=== PATIENT | male | born 1985 | race African-American/Black ===

== ENCOUNTER 2018-05-30 18:25 | Emergency (ER) | payer SELFPAY ==
[~2018-05-30] VITALS: Ht 182.9 cm; Wt 79.4 kg
--- OUTSIDE RECORDS SUMMARY | 2018-05-30 18:31 | XMS REPORT | Continuity of Care Document ---
Author Organization Unknown Address Unknown Allergies There is no data. Medications There is no data. Problems There is no data. Procedures There is no data. Results There is no data. Encounters ACCT No. Visit Date/Time Discharge Status Pt. Type Provider Facility Loc./Unit Complaint [id number] 05/30/2018 15:00:00 ACT Outpatient [facility]
--- NOTE | 2018-05-30 19:33 | ED EENT ---
History of Present Illness General Chief Complaint: Dental Problems/Pain Stated Complaint: RT SIDE TOOTH ACHE Nursing Triage Note: Patient reports right dental pain since yesterday. States he has been taking aspirin at home without relief. History of Present Illness Date Seen by Provider: May 30, 2018 Time Seen by Provider: 19:18 Initial Comments 32 yo M with right lower dental pain and swelling. Started in last day or two but more severe today. States he has a dentist appt on Saturday but pain is keeping him up at night and he has to work at [employer] at 3 am and wants something for pain and antibiotic to help him rest and to help with his tooth. He denies fever or chills. He has some pain to right mandible and jaw where the tooth is at. The tooth itself has a large hole in it and is decayed down into the pulp. He has had problems with the tooth before. He denies having drainage from the tooth. He has some mild swelling to the gums around the tooth. Allergies and Home Medications Allergies Coded Allergies: No Known Drug Allergies (Unverified , 05/30/18) Home Medications Amoxicillin/Potassium Clav 1 Each Tablet, 1 EACH PO BID Prescribed by: DUYEN DAVIS on 05/30/181939 Ibuprofen 800 Mg Tablet, 800 MG PO Q8H PRN for PAIN Prescribed by: DUYEN DAVIS on 05/30/181939 Tramadol HCl 50 Mg Tablet, 50 MG PO Q6H PRN for severe pain Prescribed by: DUYEN DAVIS on 05/30/181939 Patient Home Medication List Home Medication List Reviewed: Yes Review of Systems Review of Systems Constitutional: No chills, No fever Eyes: No Symptoms Reported Ears: Pain (right ear radiating up from his tooth); Denies Tinnitus, Denies Bloody Discharge, Denies Clear Discharge, Denies Purulent Discharge, Denies Serosanguinous Discharge, Denies Previous Injury Nose: no symptoms reported Mouth: see HPI Throat: no symptoms reported Respiratory: no symptoms reported Cardiovascular: no symptoms reported Gastrointestinal: no symptoms reported Musculoskeletal: no symptoms reported Skin: no symptoms reported Neurological: No Symptoms Reported Past Mgttytl-Dfelpd-Fenvps Hx Past Med/Social Hx: Reviewed Nursing Past Med/Soc Hx Patient Social History Alcohol Use: Occasionally Uses Recreational Drug Use: No Smoking Status: Current Everyday Smoker Type Used: Cigarettes 2nd Hand Smoke Exposure: No Recent Foreign Travel: No Contact w/Someone Who Travel: No Recent Infectious Disease Expo: No Recent Hopitalizations: No Physical Abuse: No Sexual Abuse: No Mistreated: No Fear: No Seasonal Allergies Seasonal Allergies: No Past Medical History Surgeries: No Respiratory: No Cardiac: No Neurological: No Genitourinary: No Gastrointestinal: No Musculoskeletal: No Endocrine: No Cancer: No Psychosocial: No Integumentary: No Blood Disorders: No Physical Exam Vital Signs Vital Signs - First Documented 05/30/18 18:46 Temp 99.2 Pulse 82 Resp 16 B/P (MAP) 173/86 (115) Pulse Ox 100 O2 Delivery Room Air Height, Weight, BMI Height: 6'" Weight: 175lbs. oz. 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, no motor/sensory deficits, alert, normal mood/affect, oriented x 3 Skin: normal color, warm/dry; No rash Progress/Results/Core Measures Results/Orders My Orders Orders - DUYEN DAVIS MD Ceftriaxone For Im Use (Rocephin For Im (05/31/18 09:00) Ketorolac Injection (Toradol Injection) (05/30/18 19:45) Lidocaine 1% Inj 20 Ml (Xylocaine 1% Inj (05/30/18 19:45) Ceftriaxone For Im Use (Rocephin For Im (05/30/18 19:39) Medications Given in ED Current Medications Medications Dose Ordered Sig/Art Route Start Time Stop Time Status Last Admin Dose Admin Ketorolac Tromethamine 60 mg ONCE ONCE IM 05/30/18 19:45 05/30/18 19:46 DC 05/30/18 19:55 60 MG Lidocaine HCl 2.1 ml ONCE ONCE INJ 05/30/18 19:45 05/30/18 19:46 DC 05/30/18 19:54 2.1 ML Vital Signs/I&O 05/30/18 05/30/18 18:46 20:04 Temp 99.2 99.2 Pulse 82 82 Resp 16 16 B/P (MAP) 173/86 (115) 173/86 (115) Pulse Ox 100 100 O2 Delivery Room Air Room Air Blood Pressure Mean: 115 Progress Progress Note : Progress Note will give Rocephin 1 gm IM to kick start treatment for infection and Toradol 60 mg IM for pain. Discharge on Augmentin 875 bid for infection and this will help the pain as it treats the inflammation and infection, ibuprofen for pain and inflammation, tramadol for severe pain. Counseled to follow up with dentist Saturday as scheduled or the pain will continue to come back and get worse. Departure Impression Primary Impression: Dental caries extending into dentine Additional Impressions: Pain due to dental caries Chronic dental pain Disposition: HOME, SELF-CARE Condition: Stable Departure-Patient Inst. Decision time for Depature: 19:36 Referrals: NO,LOCAL PHYSICIAN (PCP) Primary Care Physician Patient Instructions: Dental Pain (DC), Tooth Decay, Adult (DC) Add. Discharge Instructions: Take all the antibiotics until gone. Follow up with Dentist as soon as possible to get the tooth taken care of or you will continue to have recurrent pain and problems with the tooth and pain All discharge instructions reviewed with patient and/or family. Voiced understanding. Scripts Ibuprofen (Ibuprofen) 800 Mg Tablet 800 MG PO Q8H PRN for PAIN for 10 Days, #30 TAB 0 Refills Prov: DUYEN DAVIS MD 05/30/18 Tramadol HCl (Tramadol HCl) 50 Mg Tablet 50 MG PO Q6H PRN for severe pain for 5 Days, #20 TAB 0 Refills Prov: DUYEN DAVIS MD 05/30/18 Amoxicillin/Potassium Clav (Augmentin 875-125 Tablet) 1 Each Tablet 1 EACH PO BID for dental infection for 10 Days, #20 TAB 0 Refills Prov: DUYEN DAVIS MD 05/30/18 DUYEN DAVIS MD May 30, 2018 19:33
[2018-05-30] MEDS ORDERED: cefTRIAXone 1,000 MG/2.86 ml vial (IM ONLY) ONE (19:39)
[2018-05-30] MEDS ORDERED: TRAM50TA2 PO (19:40)
[2018-05-30] MEDS ORDERED: AMOX-358 PO (19:40)
[2018-05-30] MEDS ORDERED: IBUP-1780 PO (19:40)
[2018-05-30] MEDS ORDERED: KETOROLAC 60 MG/2 ML VIAL IM ONE (19:45)
[2018-05-30] MEDS ORDERED: LIDOCAINE 1% INJ 20 ML 20 ML VIAL INJ ONE (19:45)
[2018-05-30 20:04] VITALS: BP 173/86
[2018-05-31] MEDS ORDERED: cefTRIAXone 1,000 MG/2.86 ml vial (IM ONLY) IM SCH (09:00)
== END 2018-05-30 20:00 | disposition home or self-care (01) ==
LOC: ER FS 18:27
DX: K02.9 Dental caries, unspecified (principal); G89.29 Other chronic pain; F17.210 Nicotine dependence, cigarettes, uncomplicated
CPT/HCPCS: 99284

== ENCOUNTER 2019-05-24 13:45 | Emergency (ER) | payer OTHER ==
[~2019-05-24] VITALS: Ht 183 cm; Wt 82.0 kg
[~2019-05-24 13:45] MED LIST: AMOX-358 PO; IBUP-1780 PO; TRM50T PO
--- OUTSIDE RECORDS SUMMARY | 2019-05-24 13:50 | XMS REPORT ---
Author Author Austin MCLEOD Organization [facility] [place] RE Address [address] [place] [address] Care Team Providers Care Apartment Maintenance Name Role Phone BETITO MCLEOD Unavailable PROBLEMS Unknown Problems ALLERGIES No Information ENCOUNTERS Encounter Location Date Diagnosis [facility] IN [facility] [address] [facility] [place] [address] May, Mouth pain K13.79 [facility] IN [facility] [address] [facility] [place] [address] Apr, Drug screening, pre-employment Z02.1 IMMUNIZATIONS No Known Immunizations SOCIAL HISTORY Never Assessed REASON FOR VISIT Pre emp drug and alcohol Radha Sheffield (R) PLAN OF CARE Activity Details Pending Test URINE DRUG SCREEN (IN HOUSE) VITAL SIGNS MEDICATIONS No Known Medications RESULTS Name Result Date Reference Range ETOH BREATH (In House) 2018-05-05 PROCEDURES Procedure Date Ordered Result Body Site ASSAY OF BREATH ETHANOL May 05, 2018 DRUG TEST PRSMV DIR OPT OBS May 05, 2018 INSTRUCTIONS MEDICATIONS ADMINISTERED No Known Medications
--- OUTSIDE RECORDS SUMMARY | 2019-05-24 13:50 | XMS REPORT | Continuity of Care Document ---
Author Organization Unknown Address Unknown Phone Unavailable Allergies Active Description Code Type Severity Reaction Onset Reported/Identified Relationship to Patient Clinical Status Yes No Known Drug Allergies [id number] Drug Allergy Unknown N/A 05/30/2018 Medications There is no data. Problems Date Dx Coded Attending Type Code Diagnosis Diagnosed By 05/30/2018 DUYEN DAVIS MD Ot F17.2 10 NICOTINE DEPENDENCE, CIGARETTES, UNCOMPL 05/30/2018 DUYEN DAVIS MD Ot G89.2 9 OTHER CHRONIC PAIN 05/30/2018 DUYEN DAVIS MD Ot K02.9 DENTAL CARIES, UNSPECIFIED 05/30/2018 DUYEN DAVIS MD Ot K08.8 9 OTHER SPECIFIED DISORDERS OF TEETH AND S 06/02/2018 DUYEN DAVIS MD Ot F17.2 10 NICOTINE DEPENDENCE, CIGARETTES, UNCOMPL 06/02/2018 DUYEN DAVIS MD Ot G89.2 9 OTHER CHRONIC PAIN 06/02/2018 DUYEN DAVIS MD Ot K02.9 DENTAL CARIES, UNSPECIFIED 06/02/2018 DUYEN DAVIS MD Ot K08.8 9 OTHER SPECIFIED DISORDERS OF TEETH AND S Procedures There is no data. Results There is no data. Encounters ACCT No. Visit Date/Time Discharge Status Pt. Type Provider Facility Loc./Unit Complaint [id number] 05/30/2018 15:00:00 05/30/2018 23:59:5 9 CLS Outpatient KAYLEE MULLINS APRN [facility] [id number] 05/30/2018 18:27:00 019 20:00:00 DIS Emergency DUYEN DAVIS MD Via [facility] ER FS RT SIDE TOOTH ACHE
[2019-05-24] MEDS ORDERED: NS IV 1000 ML 1,000 ML IV STA (13:52)
--- NOTE | 2019-05-24 14:00 | ED General ---
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 Patient states he was dilated but drinking because he wanted to because of PROBLEMS IN HIS LIFE. PATIENT WAS BROUGHT IN BY THE POLICE FOR EVALUATION. PATIENT HAS NO RESPIRATORY OR SOFT VAGINAL SYMPTOMS. NO ERYTHEMA AND NO COMPLAINT OF SORE THROAT OR BURNING. NO DETERGENT TYPE SMELL ON THE BREATH. WE WILL CONTACT POISON CONTROL. I DO HAVE SOME CONCERNS WHETHER THE PATIENT IS ACTUALLY TAKING THIS INGESTION CLEANING PRODUCT OR NOT. Patient states he does have a history of the same in the past several years ago of an ingestion. Trying to harm himself. Patient states he was in psychological facility for about a week at that time. Patient states he is currently been in detention for the past 4-5 months due to aggravated robbery. He does not long while he is going to be in detention because he has not had a spinal cord that yet. However we will proceed with caution. We'll perform medical screening exam and evaluate treat as needed Timing/Duration: 1/2 Hour Severity: Mild Associated Systoms: Denies Symptoms; No Chest Pain, No Cough, No Diaphoresis, No Fever/Chills, No Headaches, No Loss of Appetite, No Malaise, No Nausea/Vomiting, No Rash, No Seizure, No Shortness of Air, No Syncope, No Weakness, No Other Allergies and Home Medications Allergies Coded Allergies: No Known Drug Allergies (Unverified , 05/30/18) Home Medications Amoxicillin/Potassium Clav 1 Each Tablet, 1 EACH PO BID Prescribed by: DUYEN DAVIS on 05/30/181939 Ibuprofen 800 Mg Tablet, 800 MG PO Q8H PRN for PAIN Prescribed by: DUYEN DAVIS on 05/30/181939 Tramadol HCl 50 Mg Tablet, 50 MG PO Q6H PRN for severe pain Prescribed by: DUYEN DAVIS on 05/30/181939 Patient Home Medication List Home Medication List Reviewed: Yes Review of Systems Review of Systems Constitutional: No no symptoms reported; see HPI; No chills, No diaphoresis, No dizziness, No fever, No malaise, No weakness, No weight gain, No weight loss, No other EENTM: No see HPI, No no symptoms reported, No ear discharge, No hearing loss, No ear pain, No blurred vision, No double vision, No eye pain, No tearing, No vision loss, No dental problems, No hoarseness, No mouth pain, No mouth swelling, No epistaxis, No nose congestion, No nose pain, No throat pain, No throat swelling, No other Respiratory: No no symptoms reported, No see HPI, No cough, No dyspnea on exertion, No hemoptysis, No orthopnea, No phlegm, No short of breath, No stridor, No wheezing, No other Cardiovascular: No no symptoms reported, No see HPI, No chest pain, No edema, No Hx of Intervention, No palpitations, No syncope, No vascular heart diseas, No other Gastrointestinal: No RUQ, No LUQ, No RLQ, No LLQ, No no symptoms reported, No see HPI, No abdominal pain, No constipation, No diarrhea, No dysphagia, No hematemesis, No heartburn, No jaundice, No loss of appetite, No melena, No nause a, No vomiting, No other Genitourinary: No no symptoms reported, No see HPI, No decreased output, No discharge, No dysuria, No frequency, No hematuria, No hesitancy, No incontinence, No nocturia, No pain, No other Musculoskeletal: No no symptoms reported, No see HPI, No back pain, No gout, No joint pain, No joint swelling, No muscle pain, No muscle stiffness, No muscle cramps, No muscle twitching, No muscle weakness, No neck pain, No other Skin: No no symptoms reported, No see HPI, No change in color, No change in hair/nails, No dryness, No hx of skin cancer, No lesions, No lumps, No pruritus, No rash, No other Past Rynkxmw-Aehfjo-Toomrv Hx Patient Social History Alcohol Use: Denies Use Recreational Drug Use: No Type Used: Cigarettes 2nd Hand Smoke Exposure: No Recent Hopitalizations: No Seasonal Allergies Seasonal Allergies: No Past Medical History Surgeries: No Respiratory: No Cardiac: No Neurological: No Genitourinary: No Gastrointestinal: No Musculoskeletal: No Endocrine: No HEENT: No (dental pain) Cancer: No Psychosocial: No Integumentary: No Blood Disorders: No Physical Exam Vital Signs Vital Signs - First Documented 05/24/19 13:49 Temp 36.7 Pulse 84 Resp 18 B/P (MAP) 148/91 (110) Pulse Ox 99 Capillary Refill : Height, Weight, BMI Height: 6'" Weight: 175lbs. oz. 79.822205cd; BMI Method:Stated General Appearance: No Apparent Distress, WD/WN HEENT: PERRL/EOMI, TMs Normal, Normal ENT Inspection, Pharynx Normal Neck: Full Range of Motion, Normal Inspection, Non Tender, Supple, Carotid Bruit Respiratory: Chest Non Tender, Lungs Clear, Normal Breath Sounds, No Accessory Muscle Use, No Respiratory Distress Cardiovascular: Regular Rate, Rhythm, No Edema, No Gallop, No JVD, No Murmur, Normal Peripheral Pulses Gastrointestinal: Normal Bowel Sounds, No Organomegaly, No Pulsatile Mass, Non Tender, Soft Back: Normal Inspection, No CVA Tenderness, No Vertebral Tenderness Neurologic/Psychiatric: Alert, Oriented x3, No Motor/Sensory Deficits, Normal Mood/Affect Skin: Normal Color, Warm/Dry Progress/Results/Core Measures Suspected Sepsis SIRS Temperature: Pulse: Respiratory Rate: Laboratory Tests 05/24/19 14:33: White Blood Count 5.5 Blood Pressure / Mean: Laboratory Tests 05/24/19 14:33: Creatinine 1.23, Platelet Count 284, Total Bilirubin 0.7 Results/Orders Lab Results Laboratory Tests Test 05/24/19 14:33 05/24/19 14:54 Range/Units White Blood Count 5.5 4.3-11.0 10^3/uL Red Blood Count 5.03 4.35-5.85 10^6/uL Hemoglobin 15.4 13.3-17.7 G/DL Hematocrit 46 40-54 % Mean Corpuscular Volume 92 80-99 FL Mean Corpuscular Hemoglobin 31 25-34 PG Mean Corpuscular Hemoglobin Concent 33 32-36 G/DL Red Cell Distribution Width 12.9 10.0-14.5 % Platelet Count 284 130-400 10^3/uL Mean Platelet Volume 8.9 7.4-10.4 FL Neutrophils (%) (Auto) 36 L 42-75 % Lymphocytes (%) (Auto) 53 H 12-44 % Monocytes (%) (Auto) 9 0-12 % Eosinophils (%) (Auto) 2 0-10 % Basophils (%) (Auto) 1 0-10 % Neutrophils # (Auto) 2.0 1.8-7.8 X 10^3 Lymphocytes # (Auto) 2.9 1.0-4.0 X 10^3 Monocytes # (Auto) 0.5 0.0-1.0 X 10^3 Eosinophils # (Auto) 0.1 0.0-0.3 10^3/uL Basophils # (Auto) 0.1 0.0-0.1 10^3/uL Sodium Level 137 135-145 MMOL/L Potassium Level 4.5 3.6-5.0 MMOL/L Chloride Level 97 L 98-107 MMOL/L Carbon Dioxide Level 27 21-32 MMOL/L Anion Gap 13 5-14 MMOL/L Blood Urea Nitrogen 17 7-18 MG/DL Creatinine 1.23 0.60-1.30 MG/DL Estimat Glomerular Filtration Rate > 60 BUN/Creatinine Ratio 14 Glucose Level 92 70-105 MG/DL Calcium Level 10.1 8.5-10.1 MG/DL Corrected Calcium 8.5-10.1 MG/DL Total Bilirubin 0.7 0.1-1.0 MG/DL Aspartate Amino Transf (AST/SGOT) 18 5-34 U/L Alanine Aminotransferase (ALT/SGPT) 15 0-55 U/L Alkaline Phosphatase 106 40-136 U/L Total Protein 8.6 H 6.4-8.2 GM/DL Albumin 4.9 H 3.2-4.5 GM/DL Amylase Level 59 25-125 U/L Lipase 35 8-78 U/L Salicylates Level < 0.3 L 5.0-20.0 MG/DL Acetaminophen Level < 10 L 10-30 UG/ML Urine Color YELLOW Urine Clarity CLEAR Urine pH 6.5 5-9 Urine Specific [place] 1.020 1.016-1.022 Urine Protein NEGATIVE NEGATIVE Urine Glucose (UA) NEGATIVE NEGATIVE Urine Ketones NEGATIVE NEGATIVE Urine Nitrite NEGATIVE NEGATIVE Urine Bilirubin NEGATIVE NEGATIVE Urine Urobilinogen 0.2 < = 1.0 MG/DL Urine Leukocyte Esterase NEGATIVE NEGATIVE Urine RBC (Auto) NEGATIVE NEGATIVE Urine RBC RARE /HPF Urine WBC 0-2 /HPF Urine Squamous Epithelial Cells RARE /HPF Urine Crystals NONE /LPF Urine Bacteria NEGATIVE /HPF Urine Casts NONE /LPF Urine Mucus NONE /LPF Urine Culture Indicated NO Urine Opiates Screen NEGATIVE NEGATIVE Urine Oxycodone Screen NEGATIVE NEGATIVE Urine Methadone Screen NEGATIVE NEGATIVE Urine Propoxyphene Screen NEGATIVE NEGATIVE Urine Barbiturates Screen NEGATIVE NEGATIVE Ur Tricyclic Antidepressants Screen NEGATIVE NEGATIVE Urine Phencyclidine Screen NEGATIVE NEGATIVE Urine Amphetamines Screen NEGATIVE NEGATIVE Urine Methamphetamines Screen NEGATIVE NEGATIVE Urine Benzodiazepines Screen NEGATIVE NEGATIVE Urine Cocaine Screen NEGATIVE NEGATIVE Urine Cannabinoids Screen NEGATIVE NEGATIVE My Orders Orders - CHRIS ALY MD Comprehensive Metabolic Panel (05/24/19 13:52) Lipase (05/24/19 13:52) Amylase (05/24/19 13:52) Ed Iv/Invasive Line Start (05/24/19 13:52) Cbc With Automated Diff (05/24/19 13:52) Urinalysis (05/24/19 13:52) Drug Screen Stat (Urine) (05/24/19 13:52) Ekg Tracing (05/24/19 13:52) Ns Iv 1000 Ml (Sodium Chloride 0.9%) (05/24/19 13:52) Acetaminophen (05/24/19 13:52) Salicylate (05/24/19 13:52) Vital Signs/I&O 05/24/19 13:49 Temp 36.7 Pulse 84 Resp 18 B/P (MAP) 148/91 (110) Pulse Ox 99 Capillary Refill : Progress Note : Time: 14:40 Progress Note Poison control of date states the patient has no esophageal symptoms and no respirations symptoms monitor in the ER negative labs patient be safely discharged back to the detention. If develops any oral respiratory or soft digital symptoms that should be admitted to observation for further monitoring. 1620 patient is medically stable. Patient has no signs or symptoms of any type of toxic ingestion the patient claimed. Possible confabulation. [facility]. Retirement states that if he is medically stable they will do psych screening while the patient is in detention request we discharged back to the detention. They will monitor patient closely. ECG Initial ECG Impression Date: May 24, 2019 Initial ECG Impression Time: 14:32 Initial ECG Rate: 50 Initial ECG Rhythm: Normal Sinus Initial ECG Intervals: Normal Initial ECG Impression: Normal Departure Impression Primary Impression: Suicide ideation Disposition: 21 DIS/[address]/[place] [employer] Condition: Stable Departure-Patient Inst. Decision time for Depature: 16:21 Referrals: NO,LOCAL PHYSICIAN (PCP) Primary Care Physician Patient Instructions: ALCOHOL AND SUBSTANCE ABUSE, Suicide Prevention Add. Discharge Instructions: Psych evaluation per [facility] Ret[facility] policy patient be discharged back to the [facility] detention All discharge instructions reviewed with patient and/or family. Voiced understanding. CHRIS ALY MD May 24, 2019 14:00
[2019-05-24 14:45] LABS: WHITE BLOOD COUNT 5.5 10^3/uL (4.3-11.0)
[2019-05-24 14:46] LABS: BASOPHILS # (AUTO) 0.1 10^3/uL (0.0-0.1); BASOPHILS % (AUTO) 1 % (0-10); EOSINOPHILS # (AUTO) 0.1 10^3/uL (0.0-0.3); EOSINOPHILS % (AUTO) 2 % (0-10); HEMATOCRIT 46 % (40-54); HEMOGLOBIN 15.4 G/DL (13.3-17.7); LYMPHOCYTES # (AUTO) 2.9 X 10^3 (1.0-4.0); LYMPHOCYTES % (AUTO) 53 % (12-44); MEAN CORPUSCULAR HEMOGLOBIN 31 PG (25-34); MEAN CORPUSCULAR HGB CONC 33 G/DL (32-36); MEAN CORPUSCULAR VOLUME 92 FL (80-99); MEAN PLATELET VOLUME 8.9 FL (7.4-10.4); MONOCYTES # (AUTO) 0.5 X 10^3 (0.0-1.0); MONOCYTES % (AUTO) 9 % (0-12); NEUTROPHILS % (AUTO) 36 % (42-75); PLATELET COUNT 284 10^3/uL (130-400); RED CELL DISTRIBUTION WIDTH 12.9 % (10.0-14.5)
--- NOTE | 2019-05-24 14:56 | NUR ---
Patient is incarcerated, [employer] present with the patient throughout visit.
[2019-05-24 15:09] LABS: BACTERIA,URINE NEGATIVE /HPF; BILIRUBIN,URINE NEGATIVE (NEGATIVE); CLARITY,URINE CLEAR; COLOR,URINE YELLOW; GLUCOSE, URINE (UA) NEGATIVE (NEGATIVE); KETONES,URINE NEGATIVE (NEGATIVE); LEUKOCYTE ESTERASE ,URINE NEGATIVE (NEGATIVE); NITRITE,URINE NEGATIVE (NEGATIVE); PH,URINE 6.5 (5-9); PROTEIN,URINE NEGATIVE (NEGATIVE); RBC,URINE RARE /HPF; SQUAMOUS EPITHELIAL CELL,UR RARE /HPF; WBC,URINE 0-2 /HPF
[2019-05-24 15:10] LABS: POTASSIUM 4.5 MMOL/L (3.6-5.0); SODIUM 137 MMOL/L (135-145)
[2019-05-24 15:11] LABS: ALANINE AMINOTRANSFERASE 15 U/L (0-55); ALBUMIN 4.9 GM/DL (3.2-4.5); ALKALINE PHOSPHATASE 106 U/L (40-136); AMYLASE 59 U/L (25-125); BILIRUBIN,TOTAL 0.7 MG/DL (0.1-1.0); BUN/CREATININE RATIO 14; CALCIUM 10.1 MG/DL (8.5-10.1); CARBON DIOXIDE 27 MMOL/L (21-32); CHLORIDE 97 MMOL/L (98-107); CREATININE SERUM 1.23 MG/DL (0.60-1.30); GFR ESTIMATED > 60; GLUCOSE 92 MG/DL (70-105); LIPASE 35 U/L (8-78); TOTAL PROTEIN 8.6 GM/DL (6.4-8.2)
[2019-05-24 15:12] LABS: ACETAMINOPHEN < 10 UG/ML (10-30); SALICYLATE < 0.3 MG/DL (5.0-20.0)
[2019-05-24 15:14] LABS: AMPHETAMINE SCREEN, URINE NEGATIVE (NEGATIVE); BARBITURATE SCREEN URINE NEGATIVE (NEGATIVE); BENZODIAZEPINES SCREEN URINE NEGATIVE (NEGATIVE); CANNABINOID SCREEN, URINE NEGATIVE (NEGATIVE); COCAINE SCREEN URINE NEGATIVE (NEGATIVE); METHADONE STAT NEGATIVE (NEGATIVE); METHAMPHETAMINE SCREEN URINE S NEGATIVE (NEGATIVE); OPIATE SCREEN URINE NEGATIVE (NEGATIVE); OXYCODONE STAT NEGATIVE (NEGATIVE); PROPOXYPHENE STAT NEGATIVE (NEGATIVE); TRICYCLIC ANTIDEPRESSANTS SCRE NEGATIVE (NEGATIVE)
--- NOTE | 2019-05-24 15:40 | NUR ---
Mental health screening line contacted.
[2019-05-24 16:34] VITALS: BP 130/69
== END 2019-05-24 16:30 ==
LOC: EDUNIT# 13:45 → ER FS 13:46
DX: R45.851 Suicidal ideations (principal)
CPT/HCPCS: 36415; 80053; 80306; 80329; 81000; 82150; 83690; 85025; 93005

== ENCOUNTER 2021-06-19 11:49 | Emergency (ER) | payer OTHER ==
[~2021-06-19] VITALS: Ht 182.8 cm; Wt 79.8 kg
--- NOTE | 2021-06-19 12:00 | ED Upper Extremity ---
General Stated Complaint: LT SHOULDER INJ History of Present Illness Date Seen by Provider: June 19, 2021 Time Seen by Provider: 11:57 Initial Comments 35-year-old male presents with left shoulder injury. Patient is currently incarcerated, reports that he slipped and fell in the shower 4 to 5 days ago. Since then he has been complaining of decreased range of motion and deformity in his left shoulder. They report that the [facility] nurse just saw him today she was out and sent him to the ER for further evaluation. He has limited range of motion, difficulty lifting past approximately 90 degrees. Allergies and Home Medications Allergies Coded Allergies: No Known Drug Allergies (Unverified , 05/30/18) Patient Home Medication List Home Medication List Reviewed: Yes Amoxicillin/Potassium Clav (Augmentin 875-125 Tablet) 1 Each Tablet, 1 EACH PO BID Prescribed by: DUYEN DAVIS on 05/30/181939 Ibuprofen (Ibuprofen) 800 Mg Tablet, 800 MG PO Q8H PRN for PAIN Prescribed by: DUYEN DAVIS on 05/30/181939 Tramadol HCl (Tramadol HCl) 50 Mg Tablet, 50 MG PO Q6H PRN for severe pain Prescribed by: DUYEN DAVIS on 05/30/181939 Review of Systems Constitutional: No chills, No fever EENTM: see HPI Respiratory: no symptoms reported Cardiovascular: no symptoms reported Gastrointestinal: no symptoms reported Musculoskeletal: see HPI Skin: no symptoms reported Psychiatric/Neurological: No Symptoms Reported Past Uzhqxjp-Nbgmrm-Pqqhsy Hx Seasonal Allergies Seasonal Allergies: No Past Medical History Surgeries: No Respiratory: No Cardiac: No Neurological: No Genitourinary: No Gastrointestinal: No Musculoskeletal: No Endocrine: No HEENT: No (dental pain) Cancer: No Psychosocial: No Integumentary: No Blood Disorders: No Physical Exam Vital Signs Vital Signs - First Documented 06/19/21 11:54 Temp 36.5 Pulse 65 Resp 14 B/P (MAP) 118/95 (103) Pulse Ox 99 O2 Delivery Room Air Capillary Refill : Height, Weight, BMI Height: 6'" Weight: 175lbs. oz. 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 Patient was given as a splint here in the ER. Patient was recommended to follow-up with orthopedic brace maker after his incarceration or prior to depending on their protocol. Patient is stable and discharged Diagnostic Imaging Diagonstic Imaging: Xray Comments Date of Exam:06/19/21 SHOULDER 3 VIEW LEFT EXAMINATION: Left shoulder radiograph EXAM DATE: 06/19/2021 COMPARISON: None available. HISTORY: Left shoulder pain after injury. TECHNIQUE: Three views of the left shoulder. FINDINGS: There is superior displacement of the distal left clavicle at the acromioclavicular joint. There are a few osseous fragments near the acromioclavicular joint. The glenohumeral joint is intact. The soft tissues are normal. IMPRESSION: 1. Dislocation of the acromioclavicular joint. 2. Osseous fragments near the acromioclavicular joint which are indeterminate but could be seen with tiny avulsed fragments. Departure Impression Primary Impression: Separation of acromioclavicular joint due to injury Disposition: 21 DIS/X[address]/LAW ENFORCE Condition: Stable Departure-Patient Inst. Referrals: NO,LOCAL PHYSICIAN (PCP/Family) Primary Care Physician Patient Instructions: How to Use a Shoulder Sling Add. Discharge Instructions: You may use a shoulder sling if you feel it helps with discomfort Follow-up with orthopedic brace maker to consider surgical options versus physical therapy. ESTELA BOLAND DO June 19, 2021 12:00
--- NOTE | 2021-06-19 12:30 | Diagnostic Imaging Report ---
EXAMINATION: Left shoulder radiograph EXAM DATE: 06/19/2021 COMPARISON: None available. HISTORY: Left shoulder pain after injury. TECHNIQUE: Three views of the left shoulder. FINDINGS: There is superior displacement of the distal left clavicle at the acromioclavicular joint. There are a few osseous fragments near the acromioclavicular joint. The glenohumeral joint is intact. The soft tissues are normal. IMPRESSION: 1. Dislocation of the acromioclavicular joint. 2. Osseous fragments near the acromioclavicular joint which are indeterminate but could be seen with tiny avulsed fragments. Dictated by: Dictated on workstation # [id number]
[2021-06-19 12:32] VITALS: BP 118/95
== END 2021-06-19 12:31 ==
LOC: EDUNIT# 11:49 → ER FS 11:51
DX: S43.102A Unspecified dislocation of left acromioclavicular joint, initial encounter (principal); W18.2XXA Fall in (into) shower or empty bathtub, initial encounter; Y92.002 Bathroom of unspecified non-institutional (private) residence as the place of occurrence of the external cause
CPT/HCPCS: 73030; 99283; A4565